=== PATIENT | male | born 1980 | race American Indian/Alaskan Native ===

== ENCOUNTER 2018-01-14 18:19 | Emergency (ER) | payer SELFPAY ==
[2018-01-14 18:33] VITALS: BP 159/81
== END 2018-01-14 19:47 | disposition left against medical advice (07) ==
LOC: ED 18:19
DX: R10.9 Unspecified abdominal pain (principal); Z53.21 Procedure and treatment not carried out due to patient leaving prior to being seen by health care provider

== ENCOUNTER 2020-09-09 12:00 | Emergency (ER) | payer SELFPAY ==
--- NOTE | 2020-09-09 13:08 | Emergency Department Report ---
ED CPR HPI - General Chief Complaint: Cardiac Arrest/CPR Stated Complaint: CA Time Seen by Provider: 09/09/20 12:55 Source: EMS Mode of arrival: [facility] Limitations: Other - History of Present Illness Initial Comments: This is a 39-year old man who suffered a cardiac arrest witnessed by paramedics. Paramedics related that the patient apparently had an event described as a seizure x2 per family prior to their arrival. He had fallen in the shower and possibly hit his head. No visible sign of injury was noted by paramedics. What the paramedics described to me what was most consistent with posturing type behavior behavior although they interpreted it as additional seizures. Their reenactment of the findings indicated that the patient had decerebrate posturing. The patient became completely unresponsive witnessed by paramedics. Paramedics state that he was defibrillated x2. They were able to obtain 2 twelve-lead EKGs which were transmitted. The EKG showed diffuse ST elevation essentially V1 to at least V4 with additional ST elevation seen in all 3 inferior leads. There also appeared to be an intraventricular conduction delay. This EKG was faxed to the associate quality engineer technical services consultant prior to lead medical technologist arrival as a possible STEMI. However, in my opinion this EKG appeared to be somewhat non- anatomical and possibly consistent with a massive intracranial hemorrhage instead. In either case, cardiology was on standby and the [employer] T[employer] Operator immediately ready to receive the patient if so indicated. Paramedics stated that the patient had no return of spontaneous circulation for more than 20 minutes of CPR despite 2 defibrillations and 3 rounds of epinephrine. He arrived with fixed and dilated pupils. His initial rhythm was PEA. Shortly thereafter he was noted to be in V. tach/coarse V. fib. He was defibrillated once before he was transferred [facility]. That rhythm was terminated but the patient just had a rare complex without a pulse. CPR continued. He was moved to the [facility]. He was noted again to be in V. fib. He was again defibrillated. Again he went into asystole and just had a rare complex without return of spontaneous circulation. He was given 1 round of epinephrine. No return of spontaneous circulation occurred. The patient arrived with pupils fixed and dilated. After more than 20 minutes of prehospital CPR and no response to continued effort in the emergency department, he was pronounced. Complaint: other -: minute(s) Place: home Bystander CPR Performed: No Number of Shocks Delivered: 2 (To prehospital and twice in the emergency d epartment) Initial Findings in the Field: VTACH/VFIB (And posturing) ROSC in the Field: No Associated Injuries: No (Possibly hit his head after syncopal episode) Associated Symptoms: other Treatments Prior to Arrival: intubation, chest compressions, defribrillated shocks #, epinephrine mgs # - Related Data Allergies Allergy/AdvReac Type Severity Reaction Status Date / Time No Known Allergies Allergy Unverified 01/14/18 18:33 ED Review of Systems ROS: Stated complaint: CA Other details as noted in HPI Comment: Unobtainable due to pts medical conditions ED Past Medical Hx - Past Medical History Hx Hypertension: Yes - Social History Smoking Status: Never Smoker Substance Use Type: None ED Physical Exam - General Limitations: Other General appearance: other (Pale and lifeless) - Head Head exam: Present: other (No gross deformity) - Eye Pupils: Present: other (Fixed and dilated pupils) - Neck Neck exam: Present: normal inspection - Respiratory Respiratory exam: Present: other (Breath sounds present with Ambu bag assist) - Cardiovascular Cardiovascular Exam: Present: other (No heart sounds) - GI/Abdominal GI/Abdominal exam: Absent: distended - Extremities Exam Extremities exam: Present: normal inspection - Neurological Exam Neurological exam: Present: other ED Course - Reevaluation(s) Reevaluation #1: Out of hospital cardiac arrest with no response to prolonged CPR. I believe that it could well be that this patient had a massive intracranial bleed. His EKG, although it does show ST elevation, has an unusual pattern and may be at times secondary to intracranial hemorrhage. The patient was found to be posturing in the field after a syncopal episode and possibly seizures before the event. Apparently, he had a history of hypertension. Obviously, uncontrolled hypertension may precipitate intracranial hemorrhage. Immediate posturing of this nature is more consistent with an intracranial hemorrhage rather than an acute coronary syndrome to me. The actual cause of this patient's demise is unknown and would only be determined by autopsy. Cardiology was notified that the patient has . The [employer] T[employer] Operator was available had the patient been viable. Apparently the family was very noncooperative with paramedics in the field as per the transporting medics. They were somewhat physically violent again per paramedics. Nursing was advised to obtain police backup. Our security and staff stood by to allow counseling of the family. I suggested to one police communications dispatcher that backup might be necessary before discussing care further. Unfortunately, as soon as I explained that the patient had passed, the family had a very violent response and charged the emergency department. I think that the staff may had some minor injuries due to this. Further police backup was then called. Additional officers were nearby and immediately responded. Multiple family members had to be subdued. They were transported to the police department believe. I believe it was the or significant other that remained. I attempted to console her further as did the charge nurse. 09/09/20 13:15 Critical care attestation.: If time is entered above; I have spent that time in minutes in the direct care of this critically ill patient, excluding procedure time. ED Disposition Clinical Impression: Cardiac arrest Disposition: DC-20 Is pt being admited?: No Does the pt Need Aspirin: No Condition: Stable Referrals: PRIMARY CARE, [Primary Care Provider] - 3-5 Days Time of Disposition: 13:24
[2020-09-09] MEDS ORDERED: EPINEPHrine 1 MG/10 ML SYRINGE ONE (17:00)
== END 2020-09-09 15:43 ==
LOC: ED 12:00
DX: I46.9 Cardiac arrest, cause unspecified (principal); I10 Essential (primary) hypertension
CPT/HCPCS: 92950; 99285; J0171